=== PATIENT | female | born 1985 | race African-American/Black ===

== ENCOUNTER 2018-04-24 19:45 | Emergency (ER) | payer MEDICAID ==
[~2018-04-24] VITALS: Ht 157.5 cm; Wt 68.2 kg
[2018-04-24] MEDS ORDERED: IBUPROFEN 800 MG TABLET PO ONE (20:15)
[2018-04-24 21:21] VITALS: BP 115/85
== END 2018-04-24 21:22 | disposition home or self-care (01) ==
LOC: EMS 19:56
DX: S92.512A Displaced fracture of proximal phalanx of left lesser toe(s), initial encounter for closed fracture (principal); W45.8XXA Other foreign body or object entering through skin, initial encounter; Y93.01 Activity, walking, marching and hiking; Y92.89 Other specified places as the place of occurrence of the external cause; Y99.8 Other external cause status
CPT/HCPCS: 99284